=== PATIENT | male | born 1955 | race Caucasian/White ===

== ENCOUNTER 2020-07-10 18:20 | Inpatient (IN) | payer MEDICARE ==
[2020-07-10] MEDS ORDERED: Acetaminophen 650 MG Suppository PR PRN (20:11)
--- NOTE | 2020-07-10 20:16 | PDOC.HHP ---
Hospitalist HPI - History of Present Illness dyspnea History of Present Illness: Case of an 65y/o male with a pmhx of cad, htn, hypercholesterolemia, smoker and copd who comes to hospital due to dyspnea. patient states he was on his usual state of health until about 2 month when he started with progressive dyspena. patient states that since 2 months ago he started with PND, orhtopnea and CRUZ, initially it was only occasional but it has getting worse and more recurrent, patient states that for the last weeks he has been unable to lay flat on bed and wakes up gasping for air. patient also refers occasional chest pains denies any currently, also denies any palpitations or diaphoresis. patient does complains of some cough which is usually non productive occasional white sputum, denies any fever chills Hospitalist ROS - Review of Systems All other systems reviewed; all pertinent +/- noted in HPI/Subj Hospitalist History - Past Surgical History Past Surgical History: reports: CABG - Family History Family History: reports: cardiac disorder - Social History Smoking Status: Current every day smoker Alcohol: reports: None Drugs: reports: none Living Situation: With Family - Exam General Appearance: NAD, awake alert Eye: PERRL, anicteric sclera ENT: normocephalic atraumatic, no oropharyngeal lesions Neck: supple, symmetric, no JVD, no thyromegaly Heart: RRR, no murmur, no gallops Respiratory: CTAB, no wheezes, no rales Gastrointestinal: soft, non-tender, non-distended, normal bowel sounds Extremities: no cyanosis, no clubbing, no edema Skin: normal turgor, no lesions, no rashes Neurological: cranial nerve grossly intact, normal sensation to touch Musculoskeletal: normal tone, normal strength, no muscle wasting Psychiatric: normal affect, normal behavior, A&O x 3 Hospitalist H&P A/P - Problem (1) Heart failure with acute decompensation, type unknown Code(s): I50.9 - HEART FAILURE, UNSPECIFIED Status: Acute (2) CAD (coronary artery disease) Code(s): I25.10 - ATHSCL HEART DISEASE OF [place] CORONARY ARTERY W/O ANG PCTRS Status: Acute (3) COPD (chronic obstructive pulmonary disease) Status: Acute (4) High cholesterol Code(s): E78.00 - PURE HYPERCHOLESTEROLEMIA, UNSPECIFIED Status: Acute - Plan Plan: Case of an 65y/o male with the stated pmhx who present with acute decompensation of heart failure CHF decompensation - new onset - bnp almost in the 500s - chest ct consistent with pulmonary edema and vascular congestion - will start lasix 20mg iv q 12, lasix naive - cardio evaluation - will start beta sergio and acei - 02 supplementation - 2d echo - initial troponin 0.036 will trend cad - poor compliance with medication, only takes baby aspirin - will start cardio protective medication w beta sergio, acei stain and asa copd - prn duo nebs hypercholesterolemia - statin smoker - refers quitted on 07/05/2020
[2020-07-10] MEDS: Guaifenesin DM 100-10/5 ML UDCUP PO PRN (21:52)
[2020-07-10] MEDS: Carvedilol 3.125 MG TAB PO SCH (21:52)
[2020-07-10 22:53] LABS: Troponin I 0.038 ng/mL (< 0.028)
[2020-07-11 01:43] LABS: Troponin I 0.051 ng/mL (< 0.028)
[2020-07-11 05:33] LABS: #Basophils 0.1 thou/uL (0.0-0.2); #Eosinphils 0.3 thou/uL (0.0-0.7); #Lymphocytes 1.5 thou/uL (1.20-3.40); #Monocytes 1.2 thou/uL (0.11-0.59); #Neutrophils 8.5 thou/uL (1.40-6.50); %Basophils 0.6 % (0.0-1.0); %Eosinophils 2.7 % (0.0-10.0); %Lymphocytes 13.1 % (21.0-51.0); %Monocytes 10.1 % (0.0-10.0); %Neutrophils 73.5 % (42.0-75.0); Hemoglobin 14.7 g/dL (14.0-18.0); Mean Corpuscular Hemoglobin 30.2 pg (27.0-31.0); Mean Corpuscular Volume 91.6 fL (78.0-98.0); Mean Platelet Volume 8.6 fL (7.4-10.4); Platelet Count 192 thou/uL (130-400); RBC Distribution Width 14.2 % (11.5-14.5); Red Blood Cell (RBC) Count 4.85 mill/uL (4.70-6.10); White Blood Cell (WBC) Count 11.6 thou/uL (4.8-10.8)
[2020-07-11 05:42] LABS: ALT (SGPT) 7 U/L (8-55); AST (SGOT) 13 U/L (5-34); Albumin 3.6 g/dL (3.4-4.8); Alkaline Phosphatase 101 U/L (40-110); Anion Gap 14 mmol/L (10-20); BUN (Urea Nitrogen) 10 mg/dL (8.4-25.7); Bilirubin, Total 0.8 mg/dL (0.2-1.2); Calc. Creatinine Clearance 86 mL/min (70-130); Calcium 8.1 mg/dL (7.8-10.44); Carbon Dioxide 20 mmol/L (23-31); Chloride 103 mmol/L (98-107); Globulin 2.6 g/dL (2.4-3.5); Glucose 85 mg/dL (80-115); Magnesium 1.8 mg/dL (1.6-2.6); Potassium 3.9 mmol/L (3.5-5.1); Protein, Total 6.2 g/dL (5.8-8.1); Sodium 133 mmol/L (136-145)
[2020-07-11] MEDS: Furosemide 20 MG/2 ML VIAL SLOW IVP SCH ×2 (06:00→13:53)
[2020-07-11] MEDS: Lisinopril 2.5 MG TAB PO SCH (08:46)
[2020-07-11] MEDS: Carvedilol 3.125 MG TAB PO SCH ×2 (08:46→19:59)
[2020-07-11] MEDS: Aspirin Chewable 81 MG TAB PO SCH (08:46)
[2020-07-11] MEDS: Enoxaparin Sodium 40 MG/0.4 ML SYRINGE SC SCH (08:46)
[2020-07-11] MEDS ORDERED: Enoxaparin Sodium 40 MG/0.4 ML SYRINGE SC SCH (09:00)
--- NOTE | 2020-07-11 11:29 | PDOC.HOSPP ---
- Subjective Encounter Date: 07/11/20 Encounter Time: 11:26 Subjective: complains of sob supine, pressure in chest - Objective Vital Signs & Weight: Vital Signs (12 hours) Temp Pulse Resp BP Pulse Ox 07/11/20 11:16 98.3 F 74 16 117/64 96 07/11/20 07:15 98.3 F 69 17 119/57 L 94 L 07/11/20 05:55 97.5 F L 80 20 114/66 97 07/10/20 23:31 98 F 78 22 H 110/54 L 97 Weight Weight 141 lb 8 oz I&O: 07/10/20 07/11/20 07/12/20 06:59 06:59 06:59 Intake Total 962 Output Total 375 Balance 587 Result Diagrams: 07/11/20 04:59 07/11/20 04:59 Hospitalist ROS - Medication Medications: Active Medications Generic Name Dose Route Start Last Admin Trade Name Freq PRN Reason Stop Dose Admin Aspirin 81 mg 07/11/20 09:00 07/11/20 08:46 Aspirin Chewable 81 Mg Tab PO 81 mg DAILY GEMINI Administration Carvedilol 3.125 mg 07/10/20 21:00 07/11/20 08:46 Carvedilol 3.125 Mg Tab PO 3.125 mg BID GEMINI Administration Enoxaparin Sodium 40 mg 07/11/20 09:00 07/11/20 08:46 Enoxaparin Sodium 40 Mg/0.4 Ml Syringe SC 40 mg 0900 GEMINI Administration Furosemide 20 mg 07/11/20 06:00 07/11/20 06:00 Furosemide 20 Mg/2 Ml Vial SLOW IVP 20 mg 0600,1400 GEMINI Administration Guaifenesin/Dextromethorphan 15 ml 07/10/20 20:11 07/10/20 21:52 Guaifenesin Dm 100-10/5 Ml Udcup PO 15 ml Q4H PRN Administration Cough Lisinopril 2.5 mg 07/11/20 09:00 07/11/20 08:46 Lisinopril 2.5 Mg Tab PO 2.5 mg DAILY GEMINI Administration - Exam General Appearance: awake alert Neck: no JVD Heart: RRR, no murmur Respiratory - other findings: diffuse rhonchi, vesicular Bs. coarse rales LL lung Gastrointestinal: soft, normal bowel sounds Extremities: no edema Hosp A/P (1) PNA (pneumonia) Code(s): J18.9 - PNEUMONIA, UNSPECIFIED ORGANISM Status: Acute Qualifiers: Pneumonia type: due to Pneumococcus Laterality: left Lung location: lower lobe of lung Qualified Code(s): J13 - Pneumonia due to Streptococcus pneumoniae (2) HTN (hypertension) Code(s): I10 - ESSENTIAL (PRIMARY) HYPERTENSION Status: Acute Qualifiers: Hypertension type: essential hypertension Qualified Code(s): I10 - Essential (primary) hypertension (3) CAD (coronary artery disease) Code(s): I25.10 - ATHSCL HEART DISEASE OF [place] CORONARY ARTERY W/O ANG PCTRS Status: Acute Qualifiers: Coronary Disease-Associated Artery/Lesion type: [place] artery [place] vs. transplanted heart: [place] heart Associated angina: with stable angina Qualified Code(s): I25.118 - Atherosclerotic heart disease of [place] coronary artery with other forms of angina pectoris (4) COPD (chronic obstructive pulmonary disease) Status: Acute Qualifiers: Emphysema type: unspecified (5) High cholesterol Code(s): E78.00 - PURE HYPERCHOLESTEROLEMIA, UNSPECIFIED Status: Chronic - Plan Cardiology in consult-discussed start antibx for CAP after coltures B-sergio, ACEi
[2020-07-11] MEDS: cefTRIAXone\\ROCEPHIN 1 GM in Sodium Chloride 0.9% 100 ML IVPB SCH (13:53)
[2020-07-11] MEDS: Guaifenesin DM 100-10/5 ML UDCUP PO PRN ×2 (13:56→19:59)
--- NOTE | 2020-07-11 15:00 | CON ---
DATE OF CONSULTATION: 07/11/2020 INDICATION FOR CONSULTATION: A 65-year-old patient, who is complaining of increasing shortness of breath, dyspnea on exertion, chest pain, has a history of coronary artery disease. HISTORY OF PRESENT ILLNESS: This very pleasant 65-year-old gentleman, who has a history of coronary artery disease, underwent bypass surgery in 2001 in [place], [place] with 2-vessel bypass. He is uncertain as to which vessels were bypassed. He was originally told that 4 vessels need to be bypassed, but only 2 were able to be bypassed. Approximately a year and a half ago, he was seen in [place] at [facility] and did undergo cardiac catheterization due to increasing shortness of breath at that time and was told he had 100% blockage of 2 vessels and 70% blockage of another vessel, uncertain about the bypass grafts, we do not have those records, we will try to obtain them. He has recently developed 4-pillow orthopnea. He says he is unable to do hardly anything, he cannot walk very much. He becomes short of breath. He does continue to smoke; however, until about three days ago. He has smoked for the last 53 years, is now down to half a pack a day, but has smoked more in the past. He does have COPD. His main complaint was of his shortness of breath, which become progressive as well as his orthopnea. Approximately, he said it has been getting worse for the last two years, but more so in the last 2 months, he has noticed increasing shortness of breath. He is unable to lie down and as noted, he is on 4 pillows just to stay up, so he can breathe. He does awaken at night gasping for air and he says when he coughs quite a bit from lying down, when he tries to catch his breath then he does develop some chest discomfort. He does have a history of hypertension, hypercholesterolemia, and tobacco abuse. He is not a diabetic. He does not have any early family history of heart disease. At this time, his cardiac enzymes were indeterminate, but were slightly elevated at 0.038, increased up to 0.051. He has only had 2 sets of enzymes. His EKG does not show any acute changes at this time. He stopped taking all of his medications. He only uses an albuterol inhaler and takes one baby aspirin a day. He takes p.r.n. medications for his indigestion, as well as he takes Aleve PM to help sleep and for any headaches or pains that he may have. PAST MEDICAL HISTORY: Significant for the coronary artery disease, hypertension, and dyslipidemia. He did say he had some mild CVAs in the past in 2009, but this does not limit him from walking. He complains of occasional leg cramps at night. FAMILY HISTORY: Both of his parents from mesothelioma. They worked in the shipyards during the war period and eventually from asbestosis, which cause mesothelioma. He has two brothers, one who , but he is uncertain of why, one sister who is alive and well. SOCIAL HISTORY: He continues to smoke. He lives alone. He has no history of alcohol abuse. REVIEW OF SYSTEMS: HEENT: He denies any new HEENT complaints. PULMONARY: As noted above. He has shortness of breath and dyspnea on exertion and orthopnea. CARDIOVASCULAR: As noted, he has shortness of breath as well as the orthopnea. He has some mild chest pain with exertion. He denied any significant palpitations. ABDOMINAL/GI: He had no complaints of nausea, vomiting, or diarrhea. : No complaints of dysuria, polyuria, or hematuria. MUSCULOSKELETAL: He does not ambulate very well. NEUROLOGIC: He did not complain of any deficits at this time. PHYSICAL EXAMINATION: GENERAL: Reveals a well-developed, well-nourished gentleman. He is in no acute distress at this time. He is alert. He is oriented. He denies any pain or shortness of breath at this time. He is comfortable in bed. VITAL SIGNS: He is afebrile. Heart rate is 69 and regular, respiratory rate 17, O2 saturation is 94% on room air, and blood pressure is 119/57. HEENT: Shows the head to be normocephalic and atraumatic. Carotid pulses are present. Did not hear any significant bruits. CHEST: Actually has decreased breath sounds throughout with some mild coarse rhonchi, but otherwise, did not hear any significant wheezing. CARDIOVASCULAR: Reveals a regular rate and rhythm. He does have a systolic murmur at the apex, which is about 2 to 3/6. There were no heaves or thrills. He has a well-healed midline surgical incision after median sternotomy. ABDOMEN: Soft and nontender. Positive bowel sounds are present. No masses or tenderness are noted. I do not hear any abdominal bruits. EXTREMITIES: Show no clubbing, cyanosis, or edema. I cannot palpate pedal pulses. He does have bilateral femoral pulses, which are somewhat decreased, but they are present. He does have some mild bruits. NEUROLOGIC: He appears to be grossly intact. IMAGING DATA: He did have an echocardiogram performed today, which shows ejection fraction of 50% to 55%. The left atrium was moderately dilated and mild dilatation of the right atrium. He does have some mild to moderate tricuspid valve regurgitation and moderate mitral valve regurgitation, but overall ejection fraction was well preserved. LABORATORY DATA: Sodium is 133, potassium 3.9, bicarb 20, BUN 10 with a creatinine of 0.76. Troponin as noted above, the peak so far has been 0.051. WBCs 11.6, hemoglobin 14.7, and hematocrit was 44. Thus far, he has been negative for COVID or influenza. IMPRESSION AND PLAN: 1. A 65-year-old gentleman, who presents with increasing dyspnea on exertion on 4-pillow orthopnea with a history of coronary artery disease with a catheterization, which was performed about a year and a half ago. He was told at that time, there was no further intervention or surgery that could be performed. However, he is unclear of the results of the study except to say that he did have some completely blocked vessels and had another vessel that was 70% blocked. At this time, we will try to obtain the records from [place] from [facility] to determine exactly what was found on the cardiac catheterization. If this is somewhat borderline or indeterminate, then he will need to undergo a repeat cardiac catheterization as a more definitive tool to evaluate for underlying progression of his coronary artery disease, to see if there is any assistance that we can offer this gentleman. 2. Slight elevation of cardiac enzymes. At this time, this is still indeterminate, may be due to demand ischemia associated with the work of breathing with his dyspnea. 3. Most likely severe chronic obstructive pulmonary disease. He will need to be most likely seen by the resawyer for some assistance. He tells me he does not have a doctor. He does see a physician assistant professor of biology out in [place] where he lives, otherwise has no other physicians. He has not seen a merchandise support associate since he moved to the area. Previously, he lived in [place], he has now moved to [place] and I will be more than happy to continue to follow this patient. 4. History of tobacco abuse. He says he has stopped at this time, but he will need assistance or some type of guidance perhaps to stop smoking. 5. Hypercholesterolemia. We will need to continue some type of medications, especially since this patient does have a history of coronary artery disease. He would need to be on statin medications if at all possible. We will try to obtain a fasting lipid profile tomorrow morning. I do not see that any has been performed. We will be more than happy to continue to follow the patient. Job ID: [id number]
--- NOTE | 2020-07-11 15:14 | PDOC.BPN ---
- Brief Progress Note Encounter Date: 07/11/20 Encounter Time: 15:13 acute phase reactants not significantly elevated. suspect CAP, probably strep pneumonia
[2020-07-11] MEDS: Azithromycin 500 MG in Sodium Chloride 0.9% 250 ML 250 ML IVPB SCH (15:54)
[2020-07-11] MEDS: Calcium Carbonate 500 MG ChewTAB PO PRN (17:37)
[2020-07-11] MEDS: Acetaminophen 325 MG TAB PO PRN (17:37)
[2020-07-11] MEDS: Atorvastatin Calcium 40 MG TAB PO SCH (19:59)
[2020-07-12] MEDS: Furosemide 20 MG/2 ML VIAL SLOW IVP SCH ×2 (05:34→16:22)
[2020-07-12 05:41] VITALS: BMI 21.0
[2020-07-12] MEDS: Aspirin Chewable 81 MG TAB PO SCH (09:48)
[2020-07-12] MEDS: Lisinopril 2.5 MG TAB PO SCH (09:48)
[2020-07-12] MEDS: Enoxaparin Sodium 40 MG/0.4 ML SYRINGE SC SCH (09:48)
[2020-07-12] MEDS: Carvedilol 3.125 MG TAB PO SCH ×2 (09:48→20:38)
--- NOTE | 2020-07-12 10:29 | PDOC.HOSPP ---
- Subjective Encounter Date: 07/12/20 Encounter Time: 10:13 Subjective: still sob, coughing - Objective Vital Signs & Weight: Vital Signs (12 hours) Temp Pulse Resp BP Pulse Ox 07/12/20 09:48 65 07/12/20 07:38 98.5 F 65 16 114/59 L 96 07/12/20 04:00 97.7 F 81 16 106/56 L 94 L Weight Weight 138 lb 11.2 oz I&O: 07/11/20 07/12/20 07/13/20 06:59 06:59 06:59 Intake Total 962 1092 Output Total 375 1625 Balance 587 533 Result Diagrams: 07/11/20 04:59 07/11/20 04:59 Hospitalist ROS - Medication Medications: Active Medications Generic Name Dose Route Start Last Admin Trade Name Freq PRN Reason Stop Dose Admin Acetaminophen 650 mg 07/10/20 20:11 07/11/20 17:37 Acetaminophen 325 Mg Tab PO 650 mg Q4H PRN Administration Headache/Fever/Mild Pain (1-3) Aspirin 81 mg 07/11/20 09:00 07/12/20 09:48 Aspirin Chewable 81 Mg Tab PO 81 mg DAILY GEMINI Administration Atorvastatin Calcium 40 mg 07/11/20 21:00 07/11/20 19:59 Atorvastatin Calcium 40 Mg Tab PO 40 mg HS GEMINI Administration Calcium Carbonate 1,000 mg 07/10/20 20:11 07/11/20 17:37 Calcium Carbonate 500 Mg Chewtab PO 1,000 mg Q4H PRN Administration Heartburn or Indigestion Carvedilol 3.125 mg 07/10/20 21:00 07/12/20 09:48 Carvedilol 3.125 Mg Tab PO 3.125 mg BID GEMINI Administration Enoxaparin Sodium 40 mg 07/11/20 09:00 07/12/20 09:48 Enoxaparin Sodium 40 Mg/0.4 Ml Syringe SC 40 mg 0900 GEMINI Administration Furosemide 20 mg 07/11/20 06:00 07/12/20 05:34 Furosemide 20 Mg/2 Ml Vial SLOW IVP 20 mg 0600,1400 GEMINI Administration Guaifenesin/Dextromethorphan 15 ml 07/10/20 20:11 07/11/20 19:59 Guaifenesin Dm 100-10/5 Ml Udcup PO 15 ml Q4H PRN Administration Cough Ceftriaxone Sodium 1 gm/ 100 mls @ 200 mls/hr 07/11/20 14:00 07/11/20 13:53 Sodium Chloride IVPB 100 mls 1400 GEMINI Administration Azithromycin 500 mg/ Sodium 250 mls @ 250 mls/hr 07/11/20 15:00 07/11/20 15:54 Chloride IVPB 250 mls 1500 GEMINI Administration Lisinopril 2.5 mg 07/11/20 09:00 07/12/20 09:48 Lisinopril 2.5 Mg Tab PO 2.5 mg DAILY GEMINI Administration - Exam General Appearance: awake alert Neck: no JVD Heart: RRR, no murmur Respiratory - other findings: diffuse wheezes. L post coarse rales, egophony Gastrointestinal: soft, normal bowel sounds Extremities: no edema Hosp A/P (1) PNA (pneumonia) Code(s): J18.9 - PNEUMONIA, UNSPECIFIED ORGANISM Status: Acute Qualifiers: Pneumonia type: due to Pneumococcus Laterality: left Lung location: lower lobe of lung Qualified Code(s): J13 - Pneumonia due to Streptococcus pneumoniae (2) HTN (hypertension) Code(s): I10 - ESSENTIAL (PRIMARY) HYPERTENSION Status: Acute Qualifiers: Hypertension type: essential hypertension Qualified Code(s): I10 - Essential (primary) hypertension (3) CAD (coronary artery disease) Code(s): I25.10 - ATHSCL HEART DISEASE OF [place] CORONARY ARTERY W/O ANG PCTRS Status: Acute Qualifiers: Coronary Disease-Associated Artery/Lesion type: [place] artery [place] vs. transplanted heart: [place] heart Associated angina: with stable angina Qualified Code(s): I25.118 - Atherosclerotic heart disease of [place] coronary artery with other forms of angina pectoris (4) COPD (chronic obstructive pulmonary disease) Status: Acute Qualifiers: Emphysema type: unspecified (5) High cholesterol Code(s): E78.00 - PURE HYPERCHOLESTEROLEMIA, UNSPECIFIED Status: Chronic - Plan PNA; cont iv antibx, monitor blood C&S Copd; add duoneb, iv steroids if no improvement CAD; cont YENI/b-sergio, ASA discuss with cardiology
[2020-07-12] MEDS: cefTRIAXone\\ROCEPHIN 1 GM in Sodium Chloride 0.9% 100 ML IVPB SCH (16:22)
[2020-07-12] MEDS: Azithromycin 500 MG in Sodium Chloride 0.9% 250 ML 250 ML IVPB SCH (16:23)
[2020-07-12] MEDS: Atorvastatin Calcium 40 MG TAB PO SCH (20:38)
[2020-07-12] MEDS: Guaifenesin DM 100-10/5 ML UDCUP PO PRN (20:42)
[2020-07-12] MEDS: Melatonin 3 MG TAB PO PRN (23:40)
[2020-07-13] MEDS: Furosemide 20 MG/2 ML VIAL SLOW IVP SCH ×2 (06:34→15:57)
--- NOTE | 2020-07-13 10:21 | PDOC.HOSPP ---
- Subjective Encounter Date: 07/13/20 Encounter Time: 10:13 Subjective: cough ,sob improving.no chest pain complaints today - Objective Vital Signs & Weight: Vital Signs (12 hours) Temp Pulse Resp BP Pulse Ox 07/13/20 08:15 85 13 07/13/20 07:45 96 07/13/20 07:43 98 F 82 18 107/58 L 96 07/13/20 04:04 98.2 F 76 16 103/59 L 93 L 07/12/20 23:39 95 Weight Weight 138 lb 8 oz I&O: 07/12/20 07/13/20 07/14/20 06:59 06:59 06:59 Intake Total 1092 1095 Output Total 1629 5695 Balance -533 580 Result Diagrams: 07/11/20 04:59 07/11/20 04:59 Hospitalist ROS - Medication Medications: Active Medications Generic Name Dose Route Start Last Admin Trade Name Freq PRN Reason Stop Dose Admin Acetaminophen 650 mg 07/10/20 20:11 07/11/20 17:37 Acetaminophen 325 Mg Tab PO 650 mg Q4H PRN Administration Headache/Fever/Mild Pain (1-3) Albuterol/Ipratropium 3 ml 07/12/20 13:00 07/13/20 08:15 Ipratropium/Albuterol Sulfate 3 Ml Neb NEB 3 ml [id number] GEMINI Administration Aspirin 81 mg 07/11/20 09:00 07/12/20 09:48 Aspirin Chewable 81 Mg Tab PO 81 mg DAILY GEMINI Administration Atorvastatin Calcium 40 mg 07/11/20 21:00 07/12/20 20:38 Atorvastatin Calcium 40 Mg Tab PO 40 mg HS GEMINI Administration Calcium Carbonate 1,000 mg 07/10/20 20:11 07/11/20 17:37 Calcium Carbonate 500 Mg Chewtab PO 1,000 mg Q4H PRN Administration Heartburn or Indigestion Carvedilol 3.125 mg 07/10/20 21:00 07/12/20 20:38 Carvedilol 3.125 Mg Tab PO 3.125 mg BID GEMINI Administration Enoxaparin Sodium 40 mg 07/11/20 09:00 07/12/20 09:48 Enoxaparin Sodium 40 Mg/0.4 Ml Syringe SC 40 mg 0900 GEMINI Administration Furosemide 20 mg 07/11/20 06:00 07/13/20 06:34 Furosemide 20 Mg/2 Ml Vial SLOW IVP 20 mg 0600,1400 GEMINI Administration Guaifenesin/Dextromethorphan 15 ml 07/10/20 20:11 07/12/20 20:42 Guaifenesin Dm 100-10/5 Ml Udcup PO 15 ml Q4H PRN Administration Cough Ceftriaxone Sodium 1 gm/ 100 mls @ 200 mls/hr 07/11/20 14:00 07/12/20 16:22 Sodium Chloride IVPB 100 mls 1400 GEMINI Administration Azithromycin 500 mg/ Sodium 250 mls @ 250 mls/hr 07/11/20 15:00 07/12/20 16:23 Chloride IVPB 250 mls 1500 GEMINI Administration Lisinopril 2.5 mg 07/11/20 09:00 07/12/20 09:48 Lisinopril 2.5 Mg Tab PO 2.5 mg DAILY GEMINI Administration Melatonin 3 mg 07/12/20 23:18 07/12/20 23:40 Melatonin 3 Mg Tab PO 3 mg HSPRN PRN Administration Insomnia Sodium Chloride 10 ml 07/12/20 21:00 07/12/20 20:38 Flush - Normal Saline 10 Ml Syringe IVF 10 ml Q12HR GEMINI Administration - Exam General Appearance: awake alert Neck: no JVD Heart: RRR, no murmur Respiratory - other findings: marked decreasein LLL rales,etc.chest OW clear with good BS Gastrointestinal: soft, normal bowel sounds Extremities: no edema Hosp A/P (1) PNA (pneumonia) Code(s): J18.9 - PNEUMONIA, UNSPECIFIED ORGANISM Status: Acute Qualifiers: Pneumonia type: due to Pneumococcus Laterality: left Lung location: lower lobe of lung Qualified Code(s): J13 - Pneumonia due to Streptococcus pneumoniae (2) HTN (hypertension) Code(s): I10 - ESSENTIAL (PRIMARY) HYPERTENSION Status: Acute Qualifiers: Hypertension type: essential hypertension Qualified Code(s): I10 - Essential (primary) hypertension (3) CAD (coronary artery disease) Code(s): I25.10 - ATHSCL HEART DISEASE OF [place] CORONARY ARTERY W/O ANG PCTRS Status: Acute Qualifiers: Coronary Disease-Associated Artery/Lesion type: [place] artery [place] vs. transplanted heart: [place] heart Associated angina: with stable angina Qualified Code(s): I25.118 - Atherosclerotic heart disease of [place] coronary artery with other forms of angina pectoris (4) COPD (chronic obstructive pulmonary disease) Status: Acute Qualifiers: Emphysema type: unspecified (5) High cholesterol Code(s): E78.00 - PURE HYPERCHOLESTEROLEMIA, UNSPECIFIED Status: Chronic - Plan 1.PNA-cont icv antibx today,transition to po 07/14/20 etiology most likely streppneumonis,cultues neg 2.CAD/chest pain -on ASA,coreg stain-awaiting decision by cardiology re cath 3.HTN stable
[2020-07-13] MEDS: Aspirin Chewable 81 MG TAB PO SCH (10:38)
[2020-07-13] MEDS: Lisinopril 2.5 MG TAB PO SCH (10:38)
[2020-07-13] MEDS: Enoxaparin Sodium 40 MG/0.4 ML SYRINGE SC SCH (10:39)
[2020-07-13] MEDS: Carvedilol 3.125 MG TAB PO SCH ×2 (10:39→20:24)
[2020-07-13] MEDS: cefTRIAXone\\ROCEPHIN 1 GM in Sodium Chloride 0.9% 100 ML IVPB SCH (15:57)
[2020-07-13] MEDS: Azithromycin 500 MG in Sodium Chloride 0.9% 250 ML 250 ML IVPB SCH (17:39)
[2020-07-13] MEDS: Calcium Carbonate 500 MG ChewTAB PO PRN (19:27)
[2020-07-13] MEDS: Acetaminophen 325 MG TAB PO PRN (19:27)
[2020-07-13] MEDS: Melatonin 3 MG TAB PO PRN (20:24)
[2020-07-13] MEDS: Atorvastatin Calcium 40 MG TAB PO SCH (20:24)
[2020-07-13] MEDS: Guaifenesin DM 100-10/5 ML UDCUP PO PRN (20:27)
[2020-07-14] MEDS: Furosemide 20 MG/2 ML VIAL SLOW IVP SCH (05:29)
[2020-07-14] MEDS: Enoxaparin Sodium 40 MG/0.4 ML SYRINGE SC SCH (08:17)
[2020-07-14] MEDS: Aspirin Chewable 81 MG TAB PO SCH (08:17)
[2020-07-14] MEDS: Carvedilol 3.125 MG TAB PO SCH ×2 (08:17→21:50)
[2020-07-14] MEDS: Lisinopril 2.5 MG TAB PO SCH (08:17)
[2020-07-14] MEDS: Guaifenesin DM 100-10/5 ML UDCUP PO PRN (08:18)
[2020-07-14] MEDS: cefTRIAXone\\ROCEPHIN 1 GM in Sodium Chloride 0.9% 100 ML IVPB SCH (13:40)
[2020-07-14] MEDS: Azithromycin 500 MG in Sodium Chloride 0.9% 250 ML 250 ML IVPB SCH (14:36)
--- NOTE | 2020-07-14 17:46 | PDOC.HOSPP ---
- Subjective Encounter Date: 07/14/20 Subjective: Well. Says he is breathing better. Feels like he is basically at baseline. - Objective Vital Signs & Weight: Vital Signs (12 hours) Temp Pulse Resp BP BP Pulse Ox 07/14/20 15:43 98.0 F 81 16 108/59 L 98 07/14/20 13:30 78 16 07/14/20 11:40 98.0 F 78 18 128/70 98 07/14/20 08:34 77 16 07/14/20 07:32 98.5 F 77 18 112/56 L 97 Weight Weight 135 lb 6.4 oz I&O: 07/13/20 07/14/20 07/15/20 06:59 06:59 06:59 Intake Total 1095 1450 Output Total 1675 3480 Balance -580 -1250 Result Diagrams: 07/11/20 04:59 07/11/20 04:59 Hospitalist ROS - Medication Medications: Active Medications Generic Name Dose Route Start Last Admin Trade Name Freq PRN Reason Stop Dose Admin Acetaminophen 650 mg 07/10/20 20:11 07/13/20 19:27 Acetaminophen 325 Mg Tab PO 650 mg Q4H PRN Administration Headache/Fever/Mild Pain (1-3) Albuterol/Ipratropium 3 ml 07/12/20 13:00 07/14/20 13:30 Ipratropium/Albuterol Sulfate 3 Ml Neb NEB 3 ml [id number] GEMINI Administration Aspirin 81 mg 07/11/20 09:00 07/14/20 08:17 Aspirin Chewable 81 Mg Tab PO 81 mg DAILY GEMINI Administration Atorvastatin Calcium 40 mg 07/11/20 21:00 07/13/20 20:24 Atorvastatin Calcium 40 Mg Tab PO 40 mg HS GEMINI Administration Calcium Carbonate 1,000 mg 07/10/20 20:11 07/13/20 19:27 Calcium Carbonate 500 Mg Chewtab PO 1,000 mg Q4H PRN Administration Heartburn or Indigestion Carvedilol 3.125 mg 07/10/20 21:00 07/14/20 08:17 Carvedilol 3.125 Mg Tab PO 3.125 mg BID GEMINI Administration Enoxaparin Sodium 40 mg 07/11/20 09:00 07/14/20 08:17 Enoxaparin Sodium 40 Mg/0.4 Ml Syringe SC 40 mg 0900 GEMINI Administration Guaifenesin/Dextromethorphan 15 ml 07/10/20 20:11 07/14/20 08:18 Guaifenesin Dm 100-10/5 Ml Udcup PO 15 ml Q4H PRN Administration Cough Lisinopril 2.5 mg 07/11/20 09:00 07/14/20 08:17 Lisinopril 2.5 Mg Tab PO 2.5 mg DAILY GEMINI Administration Melatonin 3 mg 07/12/20 23:18 07/13/20 20:24 Melatonin 3 Mg Tab PO 3 mg HSPRN PRN Administration Insomnia Sodium Chloride 10 ml 07/12/20 21:00 07/14/20 08:17 Flush - Normal Saline 10 Ml Syringe IVF 10 ml Q12HR GEMINI Administration - Exam General Appearance: NAD, awake alert Heart: RRR, no murmur, no gallops, no rubs, normal peripheral pulses Respiratory: no wheezes, no ronchi Respiratory - other findings: Very fine rales at right base. Gastrointestinal: soft, non-tender, non-distended, normal bowel sounds, no palpable masses, no hepatomegaly, no splenomegaly, no bruit Extremities: no cyanosis, no clubbing, no edema Skin: normal turgor Musculoskeletal: normal tone, normal strength, no muscle wasting Psychiatric: normal affect, normal behavior, A&O x 3 Hosp A/P (1) Acute diastolic (congestive) heart failure Code(s): I50.31 - ACUTE DIASTOLIC (CONGESTIVE) HEART FAILURE Status: Acute (2) PNA (pneumonia) Code(s): J18.9 - PNEUMONIA, UNSPECIFIED ORGANISM Status: Acute Qualifiers: Pneumonia type: due to Pneumococcus Laterality: left Lung location: lower lobe of lung Qualified Code(s): J13 - Pneumonia due to Streptococcus pneumoniae (3) CAD (coronary artery disease) Code(s): I25.10 - ATHSCL HEART DISEASE OF [place] CORONARY ARTERY W/O ANG PCTRS Status: Acute Qualifiers: Coronary Disease-Associated Artery/Lesion type: [place] artery [place] vs. transplanted heart: [place] heart Associated angina: with stable angina Qualified Code(s): I25.118 - Atherosclerotic heart disease of [place] coronary artery with other forms of angina pectoris (4) COPD (chronic obstructive pulmonary disease) Status: Acute Qualifiers: Emphysema type: unspecified (5) Abnormal CT scan, chest Code(s): R93.89 - ABNORMAL FINDINGS ON DX IMAGING OF OTH BODY STRUCTURES Status: Acute - Plan Patient is a 65-year-old male with a history of coronary artery disease status post bypass who presented with progressive dyspnea and orthopnea. Initially seen in an outside facility where CT scan revealed evidence of pulmonary edema, pleural effusion, loculated fluid collection in the fissure. Acute diastolic congestive heart failure: Patient has a history of coronary disease status post bypass. Presented with worsening respiratory symptoms consistent with orthopnea and dyspnea on exertion. Echocardiogram reveals normal ejection fraction making this more consistent with diastolic dysfunction. Had an elevated BNP around 500. Has improved with Lasix IV. Transition to p.o. Lasix. Preload increased with carvedilol. Afterload reduced with lisinopril. Coronary artery disease: Mild bump in his troponins likely due to the dyspnea. Continue with aspirin and statin. Evaluated by cardiology. Anticipate obtaining his records from his previous cardiology work-up and outpatient follow-up here. Pneumonia: Really no significant evidence of infiltrate. CT scan does reveal a loculated fluid collection which is likely not infectious. Patient has been on Rocephin and azithromycin. Transition to p.o. doxycycline. Abnormal CT chest: Again the patient has a fluid collection on the left at the fissure. He will need outpatient follow-up imaging to ensure resolution. Overall appears benign. Likely atypical effusion. COPD: We will likely contributing to his current symptomatology. Currently on nebulizers. Adding Dulera. Will need home treatment and outpatient follow-up.
[2020-07-14] MEDS: Mometasone 100 MCG/Formoterol 5 MCG 120 PUFF INHALER INH SCH (19:39)
[2020-07-14] MEDS: Doxycycline 100 MG CAP PO SCH (21:49)
[2020-07-14] MEDS: Melatonin 3 MG TAB PO PRN (21:50)
[2020-07-14] MEDS: Atorvastatin Calcium 40 MG TAB PO SCH (21:50)
[2020-07-15 07:39] VITALS: BP 155/117; TEMP 98.5
[2020-07-15] MEDS ORDERED: Ferrous Sulfate 325 MG TAB PO SCH (08:00)
[2020-07-15] MEDS: Mometasone 100 MCG/Formoterol 5 MCG 120 PUFF INHALER INH SCH (08:30)
[2020-07-15] MEDS: Doxycycline 100 MG CAP PO SCH (08:41)
[2020-07-15] MEDS: Lisinopril 2.5 MG TAB PO SCH (08:41)
[2020-07-15] MEDS: Carvedilol 3.125 MG TAB PO SCH (08:42)
[2020-07-15] MEDS: Enoxaparin Sodium 40 MG/0.4 ML SYRINGE SC SCH (08:42)
[2020-07-15] MEDS: Aspirin Chewable 81 MG TAB PO SCH (08:42)
[2020-07-15] MEDS ORDERED: Furosemide 20 MG TAB PO SCH (09:00)
--- NOTE | 2020-07-15 18:58 | PDOC.DS.DS ---
Provider - Provider Date of Admission: 07/11/20 14:53 Date of Discharge: 07/15/20 Admitting Provider: Sabine Downs MD Primary Care Physician: NO PCP PROVIDER Course - Hospital Course Hospital Course: Patient is a 65-year-old male with a history of coronary artery disease status post bypass who presented with progressive dyspnea and orthopnea. Initially seen in an outside facility where CT scan revealed evidence of pulmonary edema, pleural effusion, loculated fluid collection in the fissure. Acute diastolic congestive heart failure: Patient has a history of coronary disease status post bypass. Presented with worsening respiratory symptoms consistent with orthopnea and dyspnea on exertion. Echocardiogram revealed normal ejection fraction making this more consistent with diastolic dysfunction. Had an elevated BNP around 500. Improved with Lasix IV. Transitioned to p.o. Lasix. Preload increased with carvedilol. Afterload reduced with lisinopril. Ultimately, symptomatically resolved. Coronary artery disease: Mild bump in his troponins likely due to the dyspnea. Continue with aspirin and statin. Evaluated by cardiology. Anticipate obtaining his records from his previous cardiology work-up and outpatient follow-up here. Cardiology cleared the patient for discharge. Pneumonia: Really no significant evidence of infiltrate. CT scan did reveal a loculated fluid collection which is likely not infectious. Patient had been on Rocephin and azithromycin. Transitioned to p.o. doxycycline. Abnormal CT chest: Again the patient has a fluid collection on the left at the fissure. He will need outpatient follow-up imaging to ensure resolution. Patient exp ressed understanding. Overall appears benign. Likely atypical effusion. COPD: We will likely contributing to his current symptomatology. Currently on nebulizers. Added Dulera. home treatment and outpatient follow-up. Resuscitation Status: 07/10/20 20:11 Resuscitation Status Routine Resuscitation Status: FULL: Full Resuscitation - Labs Lab Results: 07/11/20 04:59 07/11/20 04:59 Microbiology - Entire Visit 07/11/20 12:08 Venous blood - Right Hand Blood Culture - Preliminary NO GROWTH AT 48 HOURS 07/11/20 12:08 Venous blood - Right Arm Blood Culture - Preliminary NO GROWTH AT 48 HOURS - Physical Exam Vitals: Vital Signs (12 hours) Temp Pulse Resp BP Pulse Ox 07/15/20 08:41 80 07/15/20 08:12 80 12 07/15/20 07:37 98.5 F 80 19 155/117 H 99 Weight Weight 134 lb 9.6 oz Physical Exam: The patient was seen and examined on the day of discharge. Problem - Problem (1) Acute diastolic (congestive) heart failure Code(s): I50.31 - ACUTE DIASTOLIC (CONGESTIVE) HEART FAILURE Status: Acute (2) PNA (pneumonia) Code(s): J18.9 - PNEUMONIA, UNSPECIFIED ORGANISM Status: Acute Qualifiers: Pneumonia type: due to Pneumococcus Laterality: left Lung location: lower lobe of lung Qualified Code(s): J13 - Pneumonia due to Streptococcus pneumoniae (3) CAD (coronary artery disease) Code(s): I25.10 - ATHSCL HEART DISEASE OF [place] CORONARY ARTERY W/O ANG PCTRS Status: Acute Qualifiers: Coronary Disease-Associated Artery/Lesion type: [place] artery [place] vs. transplanted heart: [place] heart Associated angina: with stable angina Qualified Code(s): I25.118 - Atherosclerotic heart disease of [place] coronary artery with other forms of angina pectoris (4) COPD (chronic obstructive pulmonary disease) Status: Acute Qualifiers: Emphysema type: unspecified (5) Abnormal CT scan, chest Code(s): R93.89 - ABNORMAL FINDINGS ON DX IMAGING OF OTH BODY STRUCTURES Status: Acute Plan - Discharge Medications Prescriptions: Carvedilol [Coreg] 3.125 mg PO BID #60 tab Mometasone/Formoterol 100/5 [Dulera 100 Mcg/5 Mcg Inhaler] 1 puff INH BID-RT #30 inh Ferrous Sulfate [Feosol] 325 mg PO QAM-WM #30 tab Furosemide [Lasix] 20 mg PO DAILY #30 tab Atorvastatin Calcium [Lipitor] 40 mg PO HS #30 tab Albuterol Sulfate HFA (OR) [Proventil Hfa (or)] 2 puff FS Q4H PRN #1 inh PRN Reason: Sob &/Or Wheezing Doxycycline [Vibramycin] 100 mg PO BID #10 cap Lisinopril [Zestril] 2.5 mg PO DAILY #30 tab Home Medications: Medication Instructions Recorded Confirmed Type Albuterol Sulfate [Proventil Hfa] 2 puff INH Q4H PRN 07/10/20 07/10/20 History Aspirin [Ecotrin Low Strength] 1 tab PO DAILY 07/10/20 07/10/20 History Naproxen Sod/Diphenhydramine 0.5 tab PO PRN PRN 07/10/20 07/10/20 History [Aleve PM] Naproxen Sodium [All Day Pain 220 mg PO PRN PRN 07/10/20 07/10/20 History Relief] Omeprazole 20 mg PO DAILY 07/10/20 07/10/20 History diphenhydrAMINE HCl 25 mg PO Q6HR PRN 07/10/20 07/10/20 History [diphenhydrAMINE HCl Oral Solution] Albuterol Sulfate HFA (OR) 2 puff FS Q4H PRN #1 inh 07/15/20 Rx [Proventil Hfa (or)] Atorvastatin Calcium [Lipitor] 40 mg PO HS #30 tab 07/15/20 Rx Carvedilol [Coreg] 3.125 mg PO BID #60 tab 07/15/20 Rx Doxycycline [Vibramycin] 100 mg PO BID #10 cap 07/15/20 Rx Ferrous Sulfate [Feosol] 325 mg PO QAM-WM #30 tab 07/15/20 Rx Furosemide [Lasix] 20 mg PO DAILY #30 tab 07/15/20 Rx Lisinopril [Zestril] 2.5 mg PO DAILY #30 tab 07/15/20 Rx Mometasone/Formoterol 100/5 1 puff INH BID-RT #30 inh 07/15/20 Rx [Dulera 100 Mcg/5 Mcg Inhaler] Allergies: clopidogrel [From Plavix] Allergy (Verified 07/10/20 20:15) - Discharge Instructions Discharge Instructions:: Follow up with PCP. Repeat CT scan of the chest in 6-12 weeks. Do not take the Ferrous Sulfate until the Doxycycline is completed. Activity:: Activity as Tolerated Nourishment:: Heart Healthy Diet - Follow up Plan Referrals: Wu Marie MD [Active] - PROVIDER,NO PCP [Primary Care Provider] - 7 Days (Please call to schedule a follow up appointment with. You need to establish with a primary care physician.) Disposition: HOME Quality - Care Measures CORE MEASURES:: N/A
== END 2020-07-15 10:52 | disposition home or self-care (01) | DRG 291 ==
LOC: INTOOBSV 18:51 → 2NO 18:51 → OBSVTOIN 07-11 14:53
PROVIDERS: ADMIT Internal Medicine; ATTEND Internal Medicine
DX: I11.0 Hypertensive heart disease with heart failure (principal); J13 Pneumonia due to Streptococcus pneumoniae; I50.31 Acute diastolic (congestive) heart failure; J44.0 Chronic obstructive pulmonary disease with (acute) lower respiratory infection; I25.118 Atherosclerotic heart disease of native coronary artery with other forms of angina pectoris; E78.00 Pure hypercholesterolemia, unspecified; R93.89 Abnormal findings on diagnostic imaging of other specified body structures; Z95.1 Presence of aortocoronary bypass graft; Z87.891 Personal history of nicotine dependence; Z88.8 Allergy status to other drugs, medicaments and biological substances; Z86.73 Personal history of transient ischemic attack (TIA), and cerebral infarction without residual deficits
CPT/HCPCS: 36415; 80053; 82728; 83735; 84443; 84484; 85025; 86140; 87040; 93306; 93798; 94640; 96372; 96374; 96375; 96376; G0378; J0456; J0696; J1650; J1940; J3490; J7050; J7620

== ENCOUNTER 2020-09-27 12:16 | Inpatient (IN) | payer MEDICARE ==
[2020-09-27 13:49] LABS: #Basophils 0.1 thou/uL (0.0-0.2); #Eosinphils 0.1 thou/uL (0.0-0.7); #Lymphocytes 1.3 thou/uL (1.20-3.40); #Neutrophils 7.7 thou/uL (1.40-6.50); %Basophils 0.7 % (0.0-1.0); %Eosinophils 0.8 % (0.0-10.0); %Lymphocytes 12.6 % (21.0-51.0); %Monocytes 9.4 % (0.0-10.0); %Neutrophils 76.5 % (42.0-75.0); Mean Corpuscular HGB CONC 33.5 g/dL (32.0-36.0); Mean Corpuscular Hemoglobin 32.4 pg (27.0-31.0); Mean Corpuscular Volume 96.9 fL (78.0-98.0); Mean Platelet Volume 8.5 fL (7.4-10.4); Platelet Count 149 thou/uL (130-400); RBC Distribution Width 15.1 % (11.5-14.5); Red Blood Cell (RBC) Count 4.64 mill/uL (4.70-6.10); White Blood Cell (WBC) Count 10.1 thou/uL (4.8-10.8)
[2020-09-27] MEDS ORDERED: cefTRIAXone\\ROCEPHIN 1 GM VIAL ONE (13:55)
[2020-09-27 14:14] LABS: ALT (SGPT) 9 U/L (8-55); AST (SGOT) 16 U/L (5-34); Albumin 3.9 g/dL (3.4-4.8); Alkaline Phosphatase 132 U/L (40-110); Anion Gap 15 mmol/L (10-20); BUN (Urea Nitrogen) 7 mg/dL (8.4-25.7); Bilirubin, Total 1.3 mg/dL (0.2-1.2); CK (CPK) 51 U/L (30-200); Calc. Creatinine Clearance 0 mL/min (70-130); Calcium 8.7 mg/dL (7.8-10.44); Carbon Dioxide 19 mmol/L (23-31); Chloride 105 mmol/L (98-107); Globulin 2.9 g/dL (2.4-3.5); Glucose 84 mg/dL (80-115); Lipase 15 U/L (8-78); Potassium 4.1 mmol/L (3.5-5.1); Protein, Total 6.8 g/dL (5.8-8.1); Sodium 135 mmol/L (136-145)
[2020-09-27] MEDS ORDERED: Iopamidol-370 76% 500 ML 1 ML ONE (14:52)
[2020-09-27 15:09] LABS: Bilirubin Negative (Negative); Blood, Urine Negative (Negative); Clarity Clear (Clear); Glucose, Urine (Dipstick) Normal (Negative); Ketone, Urine Negative (Negative); Leukocyte Negative Leu/uL (Negative); Nitrite Negative (Negative); Protein, Urine (Dipstick) 10 mg/dL (Neg-Trace); Specific Gravity, Urine 1.006 (1.002-1.036); Urobilinogen Normal mg/dL (Less than 2); pH, Urine 6.5 (5.0-9.0)
[2020-09-27] MEDS ORDERED: Azithromycin 500 MG VIAL ONE (15:09)
[2020-09-27] MEDS ORDERED: Acetaminophen 325 MG TAB PO PRN (15:25)
[2020-09-27] MEDS ORDERED: Aspirin 325 MG TAB ONE (15:32)
[2020-09-27] MEDS ORDERED: Furosemide 40 MG/4 ML VIAL ONE (15:32)
[2020-09-27] MEDS ORDERED: Furosemide 20 MG/2 ML VIAL SLOW IVP SCH (16:45)
[2020-09-27] MEDS ORDERED: predniSONE 20 MG TAB PO SCH (16:45)
[2020-09-27] MEDS ORDERED: Albuterol 200 PUFF (6.7GM INHALER) INH PRN (16:57)
[2020-09-27] MEDS ORDERED: Ondansetron HCl/PF 4 MG in Sodium Chloride 0.9% 50 ML IVPB PRN (17:08)
[2020-09-27] MEDS ORDERED: Labetalol HCl 100 MG/20 ML VIAL SLOW IVP PRN (17:26)
[2020-09-27 17:39] LABS: CKMB 2.5 ng/mL (0-6.6)
[2020-09-27 18:13] VITALS: BMI 21.6
[2020-09-27] MEDS ORDERED: Albuterol 200 PUFF (6.7GM INHALER) INH SCH (18:30)
[2020-09-27] MEDS: Mometasone 100 MCG/Formoterol 5 MCG 120 PUFF INHALER INH SCH (19:13)
[2020-09-27] MEDS: Atorvastatin Calcium 40 MG TAB PO SCH (20:28)
[2020-09-27] MEDS ORDERED: Carvedilol 3.125 MG TAB PO SCH (21:00)
[2020-09-27 21:10] LABS: CKMB 2.4 ng/mL (0-6.6)
[2020-09-27 21:53] LABS: SARS-CoV-2 PCR by NAA Not Detected (NotDetected)
[2020-09-28] MEDS: Melatonin 3 MG TAB PO PRN ×2 (00:05→22:40)
[2020-09-28] MEDS ORDERED: Labetalol HCl 100 MG/20 ML VIAL SLOW IVP PRN (06:00)
[2020-09-28] MEDS: Mometasone 100 MCG/Formoterol 5 MCG 120 PUFF INHALER INH SCH ×2 (07:29→19:15)
[2020-09-28] MEDS: Furosemide 20 MG TAB PO SCH (08:45)
[2020-09-28] MEDS: Enoxaparin Sodium 40 MG/0.4 ML SYRINGE SC SCH (08:45)
[2020-09-28] MEDS: Carvedilol 3.125 MG TAB PO SCH ×2 (08:45→17:09)
[2020-09-28] MEDS: Lisinopril 2.5 MG TAB PO SCH (08:45)
[2020-09-28] MEDS: predniSONE 20 MG TAB PO SCH (08:46)
[2020-09-28] MEDS ORDERED: FLU VACC QS2020-21(65YR UP)/PF 240 MCG/0.7 ML SYRINGE IM ONE (09:00)
[2020-09-28] MEDS: Atorvastatin Calcium 40 MG TAB PO SCH (20:06)
[2020-09-28] MEDS ORDERED: Benzonatate 100 MG CAP PO PRN (21:41)
[2020-09-28] MEDS ORDERED: Calcium Carbonate 500 MG ChewTAB PO PRN (21:41)
[2020-09-29] MEDS: Mometasone 100 MCG/Formoterol 5 MCG 120 PUFF INHALER INH SCH (07:48)
[2020-09-29] MEDS: Carvedilol 3.125 MG TAB PO SCH (08:23)
[2020-09-29] MEDS: predniSONE 20 MG TAB PO SCH (08:23)
[2020-09-29] MEDS: Furosemide 20 MG TAB PO SCH (08:23)
[2020-09-29] MEDS: Lisinopril 2.5 MG TAB PO SCH (08:23)
[2020-09-29] MEDS: Enoxaparin Sodium 40 MG/0.4 ML SYRINGE SC SCH (08:24)
[2020-09-29 12:50] VITALS: BP 132/68; TEMP 97.2
== END 2020-09-29 12:45 | disposition left against medical advice (07) | DRG 190 ==
LOC: ERS 12:16 → 2NO 15:29 → OBSVTOIN 09-29 12:08
PROVIDERS: ADMIT Student in an Organized Health Care Education/Training Program; ATTEND Student in an Organized Health Care Education/Training Program
DX: J43.9 Emphysema, unspecified (principal); I50.43 Acute on chronic combined systolic (congestive) and diastolic (congestive) heart failure; I11.0 Hypertensive heart disease with heart failure; Z20.822 Contact with and (suspected) exposure to COVID-19; I07.1 Rheumatic tricuspid insufficiency; I25.10 Atherosclerotic heart disease of native coronary artery without angina pectoris; F10.10 Alcohol abuse, uncomplicated; F32.9 Major depressive disorder, single episode, unspecified; F12.10 Cannabis abuse, uncomplicated; E78.5 Hyperlipidemia, unspecified; F17.210 Nicotine dependence, cigarettes, uncomplicated; Z95.1 Presence of aortocoronary bypass graft; Z28.21 Immunization not carried out because of patient refusal; Z91.14 Patient's other noncompliance with medication regimen; Z88.8 Allergy status to other drugs, medicaments and biological substances; Z79.899 Other long term (current) drug therapy; Z79.82 Long term (current) use of aspirin; Z82.49 Family history of ischemic heart disease and other diseases of the circulatory system
CPT/HCPCS: 36415; 71045; 71275; 80053; 81003; 82550; 82553; 83605; 83690; 83880; 84145; 84484; 85025; 85379; 87040; 87635; 93005; 94640; 94664; 96365; 96366; 96367; 96372; 96375; G0378; J0456; J0696; J1650; J1940; J7512; J7620; Q9967; U0003; U0005